=== PATIENT | female | born 1955 | race African-American/Black ===

== ENCOUNTER 2018-01-30 01:19 | Emergency (ER) | payer BC, OTHER ==
--- NOTE | 2018-01-30 01:59 | ER Document Report ---
ED General - General Chief Complaint: Foot Pain Stated Complaint: WC/FOOT INJURY Time Seen by Provider: 01/30/18 01:45 Notes: Patient is a pleasant 62-year-old female presents with complaint of pain over the left foot. Patient says that a few days ago a lock dropped onto her left foot. She says she has been walking her left foot and even went to work but says it continues to be painful and little bit swollen. Pain is mostly in the distal foot. She is not diabetic. She has no other complaints at this time. She denies any other injuries. - Related Data Allergies/Adverse Reactions: No Known Allergies Allergy (Unverified 01/30/18 01:25) Past Medical History - Social History Smoking Status: Never Smoker Frequency of alcohol use: None Drug Abuse: None Family History: Reviewed & Not Pertinent Review of Systems - Review of Systems Notes: My Normal Review Basic REVIEW OF SYSTEMS: CONSTITUTIONAL : Denies fever, chills, or sweats. Denies recent illness. MUSCULOSKELETAL: Foot pain SKIN: Denies rash or skin lesions. NEUROLOGICAL: Denies sensory or motor loss. ALL OTHER SYSTEMS REVIEWED AND NEGATIVE. Physical Exam - Notes Notes: General Appearance: Well nourished, alert, cooperative, no acute distress, no obvious discomfort. Vitals: reviewed, See vital signs table. Musculoskeletal: Pain over dorsum of left foot that is mostly the distal portion. No deformity. Mild swelling over the dorsum of the foot. No pain to palpation of the ankle. Good capillary refill in all toes. Extremities: good pulses in all extremities, and over left foot. Skin: warm, dry, appropriate color, no rash Neuro: speech clear, oriented x 3, normal affect, responds appropriately to questions. Distal sensation intact. Course - Re-evaluation Re-evalutation: 01/30/18 03:25 Patient was given Tylenol Motrin for pain. I did order dose to be given here before she leaves. At time of discharge she does have some hypertension but she also is having significant pain in her foot so I think is most likely related to that. She is not having concerning symptoms so she with hypertension and therefore I do not think is appropriate to treat on a antihypertensive at this time as her blood pressure may be normal when she is not having pain. She is to follow-up with her doctor on Thursday for reevaluation. X-ray shows no evidence of fracture to her foot. She is scared that she would not be able to use crutches well and therefore prescribe her a walker to use to help stay nonweightbearing of her foot which will most likely help her have less pain and help her heal faster. Dictation of this chart was performed using voice recognition software; therefore, there may be some unintended grammatical errors. Discharge - Discharge Clinical Impression: Foot contusion Qualifiers: Encounter type: initial encounter Laterality: left Qualified Code(s): S90.32XA - Contusion of left foot, initial encounter High blood pressure Qualifiers: Hypertension type: unspecified Qualified Code(s): I10 - Essential (primary) hypertension Condition: Good Disposition: HOME, SELF-CARE Additional Instructions: Please return to the ER immediately if you develop uncontrolled pain, worsening swelling, or feel unwell. Please follow up with your doctor on Thursday for reevaluation. Please try to stay nonweight bearing off your left foot until it is no longer painful to bear weight. Take Tylenol and Motrin for pain. Prescriptions: Walker [Folding Walker] 1 each ASDIR PRN #1 each PRN Reason:
--- NOTE | 2018-01-30 02:55 | RADIOLOGY REPORT (SQ) ---
EXAM DESCRIPTION: 3 views of the left foot CLINICAL HISTORY: trauma COMPARISON: None. FINDINGS: 3 views of the left foot. No acute fracture or dislocation. Normal osseous mineralization. 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 The tarsals and metatarsals appear appropriately aligned. Degenerative change of the intertarsal joints. IMPRESSION: 1. No acute fracture or dislocation
[2018-01-30] MEDS ORDERED: ACETAMINOPHEN 325 MG TABLET PO ONE (02:56)
[2018-01-30] MEDS ORDERED: IBUPROFEN 600 MG TABLET PO ONE (02:56)
[2018-01-30 03:25] VITALS: BP 191/82
== END 2018-01-30 03:25 | disposition home or self-care (01) ==
LOC: ER 01:19
DX: S90.32XA Contusion of left foot, initial encounter (principal); M79.672 Pain in left foot; W20.8XXA Other cause of strike by thrown, projected or falling object, initial encounter; Y99.0 Civilian activity done for income or pay; I10 Essential (primary) hypertension
CPT/HCPCS: 99283

== ENCOUNTER 2019-09-05 20:37 | Inpatient (IN) | payer BC ==
[2019-09-05] MEDS ORDERED: NORMAL SALINE 1000 ML 1,000 ML IV PRN (21:43)
[2019-09-05] MEDS ORDERED: MECLIZINE HCL 25 MG TABLET PO ONE (21:46)
[2019-09-05] MEDS ORDERED: ONDANSETRON HCL INJ/PF 4 MG/2 ML SDV IV ONE (21:46)
--- NOTE | 2019-09-05 21:47 | ER Document Report ---
ED Medical Screen (RME) - General Chief Complaint: Dizziness Stated Complaint: VOMITING/FEEL FAINT Time Seen by Provider: 09/05/19 21:36 TRAVEL OUTSIDE OF THE [place] IN LAST 30 DAYS: No - HPI Notes: 09/05/19 21:45 Patient is a 63-year-old female no significant past medical history who presents complaining of dizziness that is been present for the past 2 to 3 days. Patient states that she did have some nausea vomiting near the new year, but that has since improved aside from intermittent nausea. She has never had this dizziness before. She is able to eat and drink today, but does have decreased p.o. intake. She is urinating normally and having normal bowel movements. Denies drug allergies. Denies any headache, fever, neck pain, changes in vision/speech/mentation/hearing, URI, sore throat, chest pain, palpitations, syncope, cough, shortness of breath, wheeze, dyspnea, abdominal pain, diarrhea, urinary retention, dysuria, hematuria, loss of control of bowel or bladder, numbness/tingling, saddle anesthesia, muscle paralysis/weakness, or rash. I have treated and performed a rapid initial assessment of this patient. A comprehensive ED assessment and evaluation of the patient, analysis of test results and completion of medical decision making process will be conducted by additional ED providers. PHYSICAL EXAMINATION: GENERAL: Well-appearing, well-nourished and in no acute distress. A&Ox4. Answers questions appropriately. Neuro: NIH 0, GCS 15, cranial nerves grossly intact. - Related Data Allergies/Adverse Reactions: No Known Allergies Allergy (Unverified 09/05/19 21:36) Past Medical History Renal/ Medical History: Denies: Hx Peritoneal Dialysis Physical Exam - Vital signs Vitals: Temp Pulse Resp BP Pulse Ox 97.9 F 59 L 18 166/75 H 100 09/05/19 21:10 09/05/19 21:10 09/05/19 21:10 09/05/19 21:10 09/05/19 21:10 Course - Vital Signs Vital signs: Temp Pulse Resp BP Pulse Ox 97.9 F 59 L 18 166/75 H 100 09/05/19 21:10 09/05/19 21:10 09/05/19 21:10 09/05/19 21:10 09/05/19 21:10
--- NOTE | 2019-09-05 22:49 | RADIOLOGY REPORT (SQ) ---
EXAM DESCRIPTION: CT HEAD WITHOUT IV CONTRAST COMPLETED DATE/TME: 09/05/2019 21:42 CLINICAL HISTORY: 63 years, Female, dizziness COMPARISON: None. TECHNIQUE: 180 Images stored on PACS. All CT scanners at this facility use dose modulation, iterative reconstruction, and/or weight based dosing when appropriate to reduce radiation dose to as low as reasonably achievable (ALARA). [facility]: Dose Right [facility]: CareDose [facility]: Dose Right [facility]: Teradose 4D [facility]: THE [employer] App LIMITATIONS: None. FINDINGS: The globes are intact. The paranasal sinuses and mastoid air cells are unremarkable. No displaced or depressed skull fracture. No intra or extra-axial hemorrhage. CT is limited for evaluation of acute infarct. No CT evidence for large or territorial acute infarct. Wedge-shaped area of diminished attenuation isodense to CSF in the right cerebellum likely reflects an area of old infarct. No mass. No midline shift. IMPRESSION: Probable old area of infarct in the right cerebellum. Correlation with any prior/outside exams is recommended. If symptoms persist consider follow-up with MRI. Remainder unremarkable TECHNICAL DOCUMENTATION: Quality ID # 436: Final reports with documentation of one or more dose reduction techniques (e.g., Automated exposure control, adjustment of the mA and/or kV according to patient size, use of iterative reconstruction technique) copyright 2011 [employer]- All Rights Reserved
--- NOTE | 2019-09-05 23:56 | ER Document Report ---
ED General - General Chief Complaint: Dizziness Stated Complaint: VOMITING/FEEL FAINT Time Seen by Provider: 09/05/19 21:36 Notes: Patient is a 63-year-old female that comes to the emergency department for chief complaint of dizziness, sense of imbalance, and vomiting. She states that on New Year's Day she suddenly started feeling bad, having dizziness, vomited multiple times. She states this did improve later that day but she still keeps having episodes where she feels like she is spinning around in circles and episodes where she loses her balance. She denies fall injury. She denies headache. She denies fever/chills. She denies abdominal pain or chest pain. Patient states she does not have any diagnosed medical history, she does not have a primary care provider. She denies smoking, alcohol, recreational drugs. She also denies any surgeries. Her is at bedside. TRAVEL OUTSIDE OF THE [place] IN LAST 30 DAYS: No - Related Data Allergies/Adverse Reactions: No Known Allergies Allergy (Unverified 09/05/19 21:36) Past Medical History - General Information source: Patient - Social History Smoking Status: Never Smoker Frequency of alcohol use: None Drug Abuse: None Lives with: Family Family History: Reviewed & Not Pertinent Patient has suicidal ideation: No Patient has homicidal ideation: No Renal/ Medical History: Denies: Hx Peritoneal Dialysis Surgical Hx: Negative Review of Systems - Review of Systems Constitutional: No symptoms reported EENT: No symptoms reported Cardiovascular: No symptoms reported Respiratory: No symptoms reported Gastrointestinal: See HPI Genitourinary: No symptoms reported Female Genitourinary: No symptoms reported Musculoskeletal: No symptoms reported Skin: No symptoms reported Hematologic/Lymphatic: No symptoms reported Neurological/Psychological: See HPI Physical Exam - Vital signs Vitals: Temp Pulse Resp BP Pulse Ox 97.9 F 59 L 18 166/75 H 100 09/05/19 21:10 09/05/19 21:10 09/05/19 21:10 09/05/19 21:10 09/05/19 21:10 - Notes Notes: GENERAL: Alert, interacts well. No acute distress. HEAD: Normocephalic, atraumatic. EYES: Pupils equal, round, and reactive to light. Extraocular movements intact. Mild nystagmus in both directions horizontally. ENT: Oral mucosa moist, tongue midline. Oropharynx unremarkable. Airway patent. Nares patent, no nasal septal hematoma, TM's intact. NECK: Full range of motion. Supple. Trachea midline. LUNGS: Clear to auscultation bilaterally, no wheezes, rales, or rhonchi. No respiratory distress. HEART: Regular rate and rhythm. No murmur ABDOMEN: Soft, non-tender. Non-distended. Bowel sounds present in all 4 quad rants. GENITOURINARY: Deferred EXTREMITIES: Moves all 4 extremities spontaneously. No edema, normal radial and dorsalis pedis pulses bilaterally. No cyanosis. BACK: no cervical, thoracic, lumbar midline tenderness. No saddle anesthesia, normal distal neurovascular exam. Moves all extremities in full range of motion. NEUROLOGICAL: Alert and oriented x3. Normal speech. Mild ataxia. Cranial nerves II through XII grossly intact. PSYCH: Normal affect, normal mood. SKIN: Warm, dry, normal turgor. No rashes or lesions noted. Course - Re-evaluation Re-evalutation: I did observe patient ambulating and she is ataxic but she does not fall to one side and she was able to ambulate successfully even though she reaches out frequently to catch herself. She still reports dizziness, she does have some nystagmus both sides laterally, however she is alert and well-appearing, has a normal neurologic exam otherwise. She is somewhat hypertensive, vital signs unremarkable otherwise. CT of the head reviewed, shows old right-sided cerebellar infarct. I suspect this happened about 6 days ago based on patient's reported symptoms. CBC u nremarkable, chemistry unremarkable, EKG without ST segment changes or T wave inversions in consecutive leads, does not show atrial fibrillation, sinus rhythm. Chest x-ray unremarkable. Discussed with patient. Patient was very surprised and initially upset about the report. I recommended admission for stroke work-up, hypertension management, re-stratification. Discussed with Dr. Barton. Discussed with Dr. Cervantes, patient accepted to the [facility] full admission. - Vital Signs Vital signs: Temp Pulse Resp BP Pulse Ox 97.7 F 59 L 16 174/64 H 98 09/06/19 05:01 09/06/19 04:12 09/06/19 07:03 09/06/19 07:03 09/06/19 07:03 - Laboratory Result Diagrams: 09/06/19 00:20 09/06/19 00:20 Laboratory results interpreted by me: 09/06/19 00:20 RDW 14.3 H Discharge - Discharge Clinical Impression: Cerebellar infarction, Uncontrolled hypertension, Dizziness Condition: Stable Disposition: ADMITTED INPATIENT Admitting Provider: Billy (Hospitalist) Unit Admitted: [facility]
--- NOTE | 2019-09-06 00:33 | RADIOLOGY REPORT (SQ) ---
CLINICAL HISTORY: CVA workup COMPARISON: None. 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 Lungs are clear without consolidation, atelectasis, mass or edema. There is no pleural effusion. There is no pneumothorax. There are no acute osseous findings. IMPRESSION: Clear lungs.
[2019-09-06 00:36] LABS: ABSOLUTE BASOPHILS # (AUTO) 0.1 10^3/uL (0.0-0.2); ABSOLUTE EOSINOPHILS # (AUTO) 0.2 10^3/uL (0.0-0.6); ABSOLUTE LYMPHOCYTES (AUTO) 2.9 10^3/uL (0.5-4.7); ABSOLUTE MONOCYTES (AUTO) 0.9 10^3/uL (0.1-1.4); ABSOLUTE NEUT (AUTO) 6.4 10^3/uL (1.7-8.2); BASOPHILS % (AUTO) 0.8 % (0-2); EOSINOPHILS % (AUTO) 1.8 % (0-6); HEMATOCRIT 42.2 % (36.0-47.0); HEMOGLOBIN 13.9 g/dL (12.0-15.5); LYMPHOCYTES % (AUTO) 28.2 % (13-45); MEAN CORPUSCULAR HEMOGLOBIN 27.3 pg (27.0-33.4); MEAN CORPUSCULAR HGB CONC 32.9 g/dL (32.0-36.0); MEAN CORPUSCULAR VOLUME 83 fl (80-97); MONOCYTES % (AUTO) 8.2 % (3-13); RED BLOOD COUNT 5.08 10^6/uL (3.72-5.28); RED CELL DISTRIBUTION WIDTH 14.3 % (11.5-14.0); TOTAL CELLS COUNTED % (AUTO) 100 %; WHITE BLOOD COUNT 10.4 10^3/uL (4.0-10.5)
[2019-09-06 00:55] LABS: ALBUMIN 4.3 g/dL (3.5-5.0); ALKALINE PHOSPHATASE 111 U/L (38-126); ANION GAP 9 (5-19); ASPARTATE AMINO TRANSFERASE 23 U/L (14-36); BILIRUBIN,DIRECT 0.3 mg/dL (0.0-0.4); BILIRUBIN,TOTAL 0.5 mg/dL (0.2-1.3); BLOOD UREA NITROGEN 11 mg/dL (7-20); CALCIUM 9.3 mg/dL (8.4-10.2); CARBON DIOXIDE 30 mmol/L (22-30); CHLORIDE 100 mmol/L (98-107); GLUCOSE 91 mg/dL (75-110); POTASSIUM 3.9 mmol/L (3.6-5.0); TOTAL PROTEIN 8.2 g/dL (6.3-8.2)
[2019-09-06 01:04] LABS: PLATELET COUNT 318 10^3/uL (150-450)
[2019-09-06] MEDS ORDERED: MAGNESIUM HYDROXIDE SUSP 30 ML UDCUP PO PRN (04:45)
[2019-09-06] MEDS ORDERED: ACETAMINOPHEN 325 MG TABLET PO PRN (04:45)
[2019-09-06] MEDS ORDERED: DOCUSATE SODIUM 100 MG CAPSULE PO PRN (04:45)
[2019-09-06] MEDS ORDERED: HYDRALAZINE HCL INJ/PF 20 MG/1 ML SDV IV PRN (04:53)
--- NOTE | 2019-09-06 04:53 | PDOC H&P ---
History of Present Illness Admission Date/PCP: 09/06/19 01:51 Patient complains of: Vertigo History of Present Illness: EUNICE RODGERS is a 63 year old female without significant past medical history but without recent medical evaluation. She presents with 5 days of dizziness feeling as if she is going to fall to one side. Prompting her to seek evaluation in the emergency room where she is found to have uncontrolled hypertension and a subacute cerebellar CVA by CT. She denies confusion, focal weakness, difficulty with speech. She denies palpitations, previous episode she is otherwise felt well. Past Medical History Medical History: None Past Surgical History Past Surgical History: Reports: None Social History Information Source: Patient Lives with: Spouse/Significant other Smoking Status: Never Smoker Frequency of Alcohol Use: None Drugs: None - Advance Directive Resuscitation Status: Full Code Family History Family History: CAD, Hypertension Parental Family History Reviewed: Yes Children Family History Reviewed: Yes Sibling(s) Family History Reviewed.: Yes Medication/Allergy Home Medications: Walker [Folding Walker] 1 each [facility] ASDIR PRN #1 each 01/30/18 Allergies/Adverse Reactions: No Known Allergies Allergy (Unverified 09/05/19 21:36) Review of Systems Constitutional: ABSENT: chills, fever(s), headache(s), weight gain, weight loss Eyes: ABSENT: visual disturbances Ears: ABSENT: hearing changes Cardiovascular: ABSENT: chest pain, dyspnea on exertion, edema, orthropnea, palpitations Respiratory: ABSENT: cough, hemoptysis Gastrointestinal: ABSENT: abdominal pain, constipation, diarrhea, hematemesis, hematochezia, nausea, vomiting Genitourinary: ABSENT: dysuria, hematuria Musculoskeletal: ABSENT: joint swelling Integumentary: ABSENT: rash, wounds Neurological: ABSENT: abnormal gait, abnormal speech, confusion, dizziness, focal weakness, syncope Psychiatric: ABSENT: anxiety, depression, homidical ideation, suicidal ideation Endocrine: ABSENT: cold intolerance, heat intolerance, polydipsia, polyuria Hematologic/Lymphatic: ABSENT: easy bleeding, easy bruising Physical Exam Vital Signs: Temp Pulse Resp BP Pulse Ox 98.1 F 59 L 17 179/54 H 96 09/06/19 01:43 09/06/19 04:12 09/06/19 04:12 09/06/19 04:12 09/06/19 04:12 Intake & Output 09/04/19 09/05/19 09/06/19 11:59 11:59 11:59 Weight 105.4 kg General appearance: PRESENT: no acute distress, well-developed, well-nourished Head exam: PRESENT: atraumatic, normocephalic Eye exam: PRESENT: conjunctiva pink, EOMI, nystagmus, PERRLA. ABSENT: scleral icterus Ear exam: PRESENT: normal external ear exam Mouth exam: PRESENT: moist, tongue midline Neck exam: ABSENT: carotid bruit, JVD, lymphadenopathy, thyromegaly Respiratory exam: PRESENT: clear to auscultation karley. ABSENT: rales, rhonchi, wheezes Cardiovascular exam: PRESENT: RRR. ABSENT: diastolic murmur, rubs, systolic murmur Pulses: PRESENT: normal dorsalis pedis pul Vascular exam: PRESENT: normal capillary refill GI/Abdominal exam: PRESENT: normal bowel sounds, soft. ABSENT: distended, guarding, mass, organolmegaly, rebound, tenderness Rectal exam: PRESENT: deferred Extremities exam: PRESENT: full ROM. ABSENT: calf tenderness, clubbing, pedal edema Neurological exam: PRESENT: alert, awake, oriented to person, oriented to place, oriented to time, oriented to situation, CN II-XII grossly intact. ABSENT: motor sensory deficit Psychiatric exam: PRESENT: appropriate affect, normal mood. ABSENT: homicidal ideation, suicidal ideation Skin exam: PRESENT: dry, intact, warm. ABSENT: cyanosis, rash Results Laboratory Results: 09/06/19 00:20 09/06/19 00:20 09/06/19 09/06/19 00:20 00:20 WBC 10.4 RBC 5.08 Hgb 13.9 Hct 42.2 MCV 83 MCH 27.3 MCHC 32.9 RDW 14.3 H Plt Count 318 Seg Neutrophils % 61.0 Sodium 139.0 Potassium 3.9 Chloride 100 Carbon Dioxide 30 Anion Gap 9 BUN 11 Creatinine 0.64 Est GFR ( Amer) > 60 Glucose 91 Calcium 9.3 Total Bilirubin 0.5 AST 23 Alkaline Phosphatase 111 Total Protein 8.2 Albumin 4.3 09/06/19 00:20 Troponin I 0.015 Impressions: Head CT 09/05/19 21:42 IMPRESSION: Probable old area of infarct in the right cerebellum. Correlation with any prior/outside exams is recommended. If symptoms persist consider follow-up with MRI. Remainder unremarkable TECHNICAL DOCUMENTATION: Quality ID # 436: Final reports with documentation of one or more dose reduction techniques (e.g., Automated exposure control, adjustment of the mA and/or kV according to patient size, use of iterative reconstruction technique) copyright 2011 [employer]- All Rights Reserved Chest X-Ray 09/05/19 23:46 IMPRESSION: Clear lungs. Assessment and Plan - Diagnosis (1) Cerebellar infarction Is this a current diagnosis for this admission?: Yes Plan: CVA care set, follow-up MRI, carotid Doppler, lipid profile, A1c and physical and Occupational Therapy (2) Dizziness Is this a current diagnosis for this admission?: Yes Plan: Secondary #1 (3) Uncontrolled hypertension Is this a current diagnosis for this admission?: Yes Plan: Initiate JOANNE inhibitor - Time Time Spent with patient: 25-34 minutes - Inpatient Certification Medical Necessity: Need Close Monitoring Due to Risk of Patient Decompensation
[2019-09-06] MEDS ORDERED: ATORVASTATIN CALCIUM 80 MG TABLET PO ONE (05:00)
[2019-09-06] MEDS ORDERED: ENALAPRIL MALEATE 10 MG TABLET PO ONE (05:00)
[2019-09-06] MEDS ORDERED: HEPARIN SOD (PORCINE) 5,000 UNIT/ML 1 ML VIAL SUBCUT SCH (06:00)
[2019-09-06 06:25] LABS: CHOLESTEROL 205.34 mg/dL (0-200); TRIGLYCERIDES 81 mg/dL (<150)
[2019-09-06 06:36] LABS: DIRECT LDL 124 mg/dL (<100)
--- NOTE | 2019-09-06 11:00 | RADIOLOGY REPORT (SQ) ---
EXAM DESCRIPTION: MRI HEAD WITHOUT COMPLETED DATE/TIME: 09/06/2019 9:57 am REASON FOR STUDY: vertigo COMPARISON: CT dated 09/05/2019. TECHNIQUE: Multiplanar imaging includes non-contrasted T1, T2, FLAIR, and diffusion with ADC map seq uences. Images stored on PACS. LIMITATIONS: None. FINDINGS: ANATOMY: No anomalies. Normal vascular flow voids. Pituitary fossa normal. CSF SPACES: Normal in size and contour. No hemorrhage. CEREBRUM: Sulci and gyri normal in size and contour. Normal white matter signal on FLAIR imaging. No evidence of hemorrhage, mass, or extraaxial fluid collection. POSTERIOR FOSSA: Focal area of encephalomalacia in the inferior right cerebellar hemisphere. No hemor rhage. No edema, masses or mass effect. Internal auditory canals, cerebello-pontine angles, mastoids normal. DIFFUSION IMAGING: Negative for acute or sub-acute infarction. ORBITS: No masses. Globes normal. PARANASAL SINUSES: No fluid levels. Mucosa normal. OTHER: No other significant finding. IMPRESSION: FOCAL AREA OF ENCEPHALOMALACIA IN THE INFERIOR RIGHT CEREBELLAR HEMISPHERE. THIS MAY BE DUE TO AN OLD INFARCT OR COULD BE SEQUELAE OF OLD TRAUMA. NO OTHER SIGNIFICANT OR ACUTE FINDINGS. EVIDENCE OF ACUTE STROKE: NO. TECHNICAL DOCUMENTATION: JOB ID: [id number] [employer]- All Rights Reserved Reading location - IP/workstation name: [email or web address]
[2019-09-06] MEDS: ASPIRIN 325 MG TABLET, ENT COATED PO SCH (11:20)
--- NOTE | 2019-09-06 11:46 | PDOC PROGRESS REPORT ---
Subjective Progress Note for:: 09/06/19 Subjective:: Patient reports no acute dizziness at this time. She occasionally gets a sensation on the right side of her neck. She in fact moves her hand over the trapezius muscle. She states that rubbing it makes it feel better. 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 She states that she has not had any problems with coordination while sewing. She denies headache, nausea and vomiting at this time. Reason For Visit: CVA VERTIGO Physical Exam Vital Signs: Temp Pulse Resp BP Pulse Ox 97.7 F 59 L 19 181/67 H 97 09/06/19 05:01 09/06/19 04:12 09/06/19 11:31 09/06/19 11:31 09/06/19 09:01 Intake & Output 09/05/19 09/06/19 09/07/19 06:59 06:59 06:59 Weight 105.4 kg General appearance: PRESENT: no acute distress, cooperative, obese, well- developed Head exam: PRESENT: atraumatic, normocephalic Eye exam: PRESENT: conjunctiva pink, EOMI, nystagmus - Faint nystagmus to the left. ABSENT: scleral icterus Ear exam: PRESENT: normal external ear exam. ABSENT: bleeding, drainage Mouth exam: PRESENT: moist, tongue midline Neck exam: PRESENT: full ROM. ABSENT: carotid bruit, lymphadenopathy Respiratory exam: PRESENT: clear to auscultation karley, symmetrical, unlabored. ABSENT: accessory muscle use, rales, rhonchi, tachypnea, wheezes Cardiovascular exam: PRESENT: RRR, +S1, +S2 GI/Abdominal exam: PRESENT: normal bowel sounds, soft. ABSENT: distended, guarding, tenderness Rectal exam: PRESENT: deferred Extremities exam: ABSENT: pedal edema Musculoskeletal exam: PRESENT: normal inspection, other - Normal plantar and dorsiflexion of the feet. Normal grasp bilaterally. ABSENT: deformity Neurological exam: PRESENT: alert, awake, oriented to person, oriented to place, oriented to time, oriented to situation, CN II-XII grossly intact, other - Did not attempt to ambulate the patient at this time. ABSENT: motor sensory deficit - No gross motor or sensory deficits appreciated Psychiatric exam: ABSENT: agitated, anxious Skin exam: PRESENT: dry, normal color, warm. ABSENT: rash Results Laboratory Results: 09/06/19 00:20 09/06/19 00:20 09/06/19 09/06/19 09/06/19 00:20 00:20 05:56 WBC 10.4 RBC 5.08 Hgb 13.9 Hct 42.2 MCV 83 MCH 27.3 MCHC 32.9 RDW 14.3 H Plt Count 318 Seg Neutrophils % 61.0 Sodium 139.0 Potassium 3.9 Chloride 100 Carbon Dioxide 30 Anion Gap 9 BUN 11 Creatinine 0.64 Est GFR ( Amer) > 60 Glucose 91 Calcium 9.3 Total Bilirubin 0.5 AST 23 Alkaline Phosphatase 111 Total Protein 8.2 Albumin 4.3 Triglycerides 81 Cholesterol 205.34 H LDL Cholesterol Direct 124 H VLDL Cholesterol 16.0 HDL Cholesterol 55 09/06/19 00:20 Troponin I 0.015 Impressions: Head CT 09/05/19 21:42 IMPRESSION: Probable old area of infarct in the right cerebellum. Correlation with any prior/outside exams is recommended. If symptoms persist consider follow-up with MRI. Remainder unremarkable TECHNICAL DOCUMENTATION: Quality ID # 436: Final reports with documentation of one or more dose reduction techniques (e.g., Automated exposure control, adjustment of the mA and/or kV according to patient size, use of iterative reconstruction technique) copyright 2011 [employer]- All Rights Reserved Chest X-Ray 09/05/19 23:46 IMPRESSION: Clear lungs. Head MRI 09/06/19 00:00 IMPRESSION: FOCAL AREA OF ENCEPHALOMALACIA IN THE INFERIOR RIGHT CEREBELLAR HEMISPHERE. THIS MAY BE DUE TO AN OLD INFARCT OR COULD BE SEQUELAE OF OLD TRAUMA. NO OTHER SIGNIFICANT OR ACUTE FINDINGS. EVIDENCE OF ACUTE STROKE: NO. Assessment and Plan - Diagnosis (1) Cerebellar infarction Is this a current diagnosis for this admission?: Yes Plan: The patient had an area of encephalomalacia in the cerebellum. It has been a week since her stroke. We will institute blood pressure control measures as well as aspirin and statin therapy. Carotid ultrasound pending (2) Dizziness Is this a current diagnosis for this admission?: Yes Plan: The patient describes an almost vertigo-like picture. She did had very slight left nystagmus. Does not feel dizzy now. Physical therapy will evaluate. (3) Hypertensive emergency Is this a current diagnosis for this admission?: Yes Plan: Patient blood pressure was greater than 190 systolic on several occasions initially. Medications instituted. Blood pressure improving. Explained to the patient that we do not want to drop her blood pressure too quickly. - Plan Summary Summary: [place] antihypertensives as well as antiplatelet and statin therapy. Awaiting carotid ultrasounds and physical therapy evaluation. - Time Time Spent with patient: 15-24 minutes Medications reviewed and adjusted accordingly: Yes Anticipated discharge: Home with Homehealth
--- NOTE | 2019-09-06 14:40 | RADIOLOGY REPORT (SQ) ---
EXAM DESCRIPTION: CAROTID DOPPLER COMPLETED DATE/TIME: 09/06/2019 10:19 am REASON FOR STUDY: cva COMPARISON: None. TECHNIQUE: Grayscale ultrasound, Doppler velocity and spectra, and color Doppler images acquired of the extra-cranial carotid and vertebral arteries. Images stored on PACS. LIMITATIONS: None. FINDINGS: RIGHT CAROTID CCA Velocities: Within normal limits. ICA Velocities Peak systolic 117 m/s. End diastolic 23 m/s. Proximal ICA/CCA peak systolic ratio 2.0. There is mild intimal thickening at the carotid bulb and proximal internal carotid artery. Normal sp ectral waveforms. LEFT CAROTID CCA Velocities: Within normal limits. ICA Velocities Peak systolic 117 m/s. End diastolic 29 m/s. Proximal ICA/CCA peak systolic ratio 1.7. Mild intimal thickening at the carotid bulb and proximal internal carotid artery. Normal spectral wa veforms. VERTEBRAL ARTERIES: Antegrade flow. Normal waveforms. SUBCLAVIAN ARTERIES: No finding. OTHER: No other significant finding. IMPRESSION: Less than 50% stenosis bilateral internal carotid arteries. COMMENT: Quality ID #[id number]: Velocity criteria are extrapolated from the diameter data as defined by t he Society of Radiologists in Ultrasound Consensus Conference. Radiology 2003: 229; 340-346. TECHNICAL DOCUMENTATION: JOB ID: [id number] [employer]- All Rights Reserved Reading location - IP/workstation name: [email or web address]
[2019-09-06] MEDS: HEPARIN SOD (PORCINE) 5,000 UNIT/ML 1 ML VIAL SUBCUT SCH ×2 (16:06→22:34)
[2019-09-06] MEDS ORDERED: ATORVASTATIN CALCIUM 80 MG TABLET PO SCH (22:00)
--- NOTE | 2019-09-06 22:26 | EKG REPORT ---
SEVERITY:- ABNORMAL ECG - SINUS RHYTHM PROBABLE LEFT ATRIAL ABNORMALITY LEFT VENTRICULAR HYPERTROPHY : Confirmed by: Roxanne Palumbo 06-Sep-2019 22:26:13
[2019-09-06] MEDS: ENALAPRIL MALEATE 10 MG TABLET PO SCH (22:36)
[2019-09-07] MEDS ORDERED: KETOROLAC TROMETHAMINE INJ/PF 30 MG/1 ML SDV IV ONE (02:30)
[2019-09-07] MEDS ORDERED: KETOROLAC TROMETHAMINE INJ/PF 30 MG/1 ML SDV IM ONE (02:30)
[2019-09-07] MEDS: HEPARIN SOD (PORCINE) 5,000 UNIT/ML 1 ML VIAL SUBCUT SCH ×2 (05:36→14:07)
[2019-09-07] MEDS: ENALAPRIL MALEATE 10 MG TABLET PO SCH (10:02)
[2019-09-07] MEDS: ASPIRIN 325 MG TABLET, ENT COATED PO SCH (10:02)
--- NOTE | 2019-09-07 11:18 | EKG REPORT ---
SEVERITY:- ABNORMAL ECG - SINUS RHYTHM LEFT ATRIAL ABNORMALITY LEFT VENTRICULAR HYPERTROPHY : Confirmed by: Roxanne Palumbo 07-Sep-2019 11:18:30
--- NOTE | 2019-09-07 14:32 | PDOC DISCHARGE SUMMARY ---
Impression - Admit/DC Date/PCP Admission Date/Primary Care Provider: 09/06/19 01:51 Discharge Date: 09/07/19 - Discharge Diagnosis (1) Cerebellar infarction Is this a current diagnosis for this admission?: Yes (2) Dizziness Is this a current diagnosis for this admission?: Yes (3) Hypertensive emergency Is this a current diagnosis for this admission?: Yes - Assessment Summary: 09/06/2019-institute antihypertensives as well as antiplatelet and statin therapy. Awaiting carotid ultrasounds and physical therapy evaluation. 09/07/2019-better blood pressure control. Walked with physical therapy and no dizziness. Tolerating statin therapy. Will discharge to home with home health and physical therapy. - Additional Information Resuscitation Status: Full Code Discharge Diet: Cardiac Discharge Activity: Activity As Tolerated Referrals: MARIO RODRIGUEZ MD [ACTIVE STAFF] - 09/19/19 2:30 pm (Please arrive 15 minutes early to fillout paper work. You will see Dr. Shell) Prescriptions: Aspirin [Adult Low Dose Aspirin EC] 81 mg PO DAILY 15 Days #15 tablet. Atorvastatin Calcium [Lipitor 40 mg Tablet] 40 mg PO QHS 15 Days #15 tablet Enalapril Maleate [Vasotec 10 mg Tablet] 10 mg PO Q12 15 Days #30 tablet Home Medications: Aspirin [Adult Low Dose Aspirin EC] 81 mg PO DAILY 15 Days #15 tablet. 09/07/19 Atorvastatin Calcium [Lipitor 40 mg Tablet] 40 mg PO QHS 15 Days #15 tablet 09/07/19 Enalapril Maleate [Vasotec 10 mg Tablet] 10 mg PO Q12 15 Days #30 tablet 09/07/19 History of Present Illiness History of Present Illness: EUNICE RODGERS is a 63 year old female who does not like taking medications. On she felt dizzy. She felt weak. She did not feel that she needed to go to the emergency department. Her weakness and neurologic deficits waxed and waned and find the with family encouragement she presented to the emergency department. She was found to have a cerebellar stroke. Because it was 7 days from the onset she was not a candidate for any thrombolytic therapy. She was referred to the hospital service for admission. Hospital Course Hospital Course: Unremarkable hospital course. With improved blood pressures her symptoms improved. She was able to ambulate with physical therapy. She had some nonspecific complaints today including a cough which I believe is from reflux, some numbness under the toes on her left foot which is very nonspecific and some skin discomfort on the right side to the area under the right breast without evidence of shingles. Carotid ultrasounds revealed less than 50% stenosis bilaterally. She is tolerating statin, aspirin and antihypertensive therapy. Physical Exam Vital Signs: Temp Pulse Resp BP Pulse Ox 98.2 F 60 16 161/58 H 95 09/07/19 11:30 09/07/19 12:00 09/07/19 12:00 09/07/19 12:00 09/07/19 12:00 Intake & Output 09/06/19 09/07/19 09/08/19 06:59 06:59 06:59 Intake Total 475 525 Output Total 1 Balance 474 525 Weight 105.4 kg 104.2 kg General appearance: PRESENT: no acute distress, cooperative, well-developed Head exam: PRESENT: atraumatic, normocephalic Eye exam: PRESENT: conjunctiva pink, EOMI. ABSENT: scleral icterus Ear exam: PRESENT: normal external ear exam. ABSENT: bleeding, drainage Mouth exam: PRESENT: moist, tongue midline Respiratory exam: PRESENT: clear to auscultation karley, symmetrical, unlabored. ABSENT: rales, rhonchi, tachypnea, wheezes Cardiovascular exam: PRESENT: RRR, +S1, +S2 GI/Abdominal exam: PRESENT: normal bowel sounds, soft. ABSENT: distended, guarding, tenderness Rectal exam: PRESENT: deferred Gentrourinary exam: ABSENT: indwelling catheter Extremities exam: ABSENT: joint swelling, pedal edema Musculoskeletal exam: PRESENT: ambulatory, normal inspection. ABSENT: deformity Neurological exam: PRESENT: alert, awake, oriented to person, oriented to place, oriented to time, oriented to situation, CN II-XII grossly intact. ABSENT: motor sensory deficit - Complained of numbness under her left toes. Gross sensation was intact as well as proprioception. Psychiatric exam: PRESENT: anxious - Seems slightly anxious regarding discharge. She had multiple questions.. ABSENT: agitated Focused psych exam: ABSENT: delusional, restlessness Skin exam: PRESENT: dry, warm, other - Complained of some discomfort in a dermatomal distribution on the right. No rash noted. Some areas of discomfort but I do not feel it is shingles related. It is somewhat nonspecific.. ABSENT: erythema, rash Results Laboratory Results: WBC 10.4 10^3/uL (4.0-10.5) 09/06/19 00:20 RBC 5.08 10^6/uL (3.72-5.28) 09/06/19 00:20 Hgb 13.9 g/dL (12.0-15.5) 09/06/19 00:20 Hct 42.2 % (36.0-47.0) 09/06/19 00:20 MCV 83 fl (80-97) 09/06/19 00:20 MCH 27.3 pg (27.0-33.4) 09/06/19 00:20 MCHC 32.9 g/dL (32.0-36.0) 09/06/19 00:20 RDW 14.3 % (11.5-14.0) H 09/06/19 00:20 Plt Count 318 10^3/uL (150-450) 09/06/19 00:20 Lymph % (Auto) 28.2 % (13-45) 09/06/19 00:20 [place] % (Auto) 8.2 % (3-13) 09/06/19 00:20 Eos % (Auto) 1.8 % (0-6) 09/06/19 00:20 Baso % (Auto) 0.8 % (0-2) 09/06/19 00:20 Absolute Neuts (auto) 6.4 10^3/uL (1.7-8.2) 09/06/19 00:20 Absolute Lymphs (auto) 2.9 10^3/uL (0.5-4.7) 09/06/19 00:20 Absolute Monos (auto) 0.9 10^3/uL (0.1-1.4) 09/06/19 00:20 Absolute Eos (auto) 0.2 10^3/uL (0.0-0.6) 09/06/19 00:20 Absolute Basos (auto) 0.1 10^3/uL (0.0-0.2) 09/06/19 00:20 Seg Neutrophils % 61.0 % (42-78) 09/06/19 00:20 Sodium 139.0 mmol/L (137-145) 09/06/19 00:20 Potassium 3.9 mmol/L (3.6-5.0) 09/06/19 00:20 Chloride 100 mmol/L (98-107) 09/06/19 00:20 Carbon Dioxide 30 mmol/L (22-30) 09/06/19 00:20 Anion Gap 9 (5-19) 09/06/19 00:20 BUN 11 mg/dL (7-20) 09/06/19 00:20 Creatinine 0.64 mg/dL (0.52-1.25) 09/06/19 00:20 Est GFR ( Amer) > 60 (>60) 09/06/19 00:20 Est GFR (MDRD) Non-Af > 60 (>60) 09/06/19 00:20 Glucose 91 mg/dL (75-110) 09/06/19 00:20 Hemoglobin A1c % 6.3 % (4.7-6.0) H 09/06/19 05:56 Calcium 9.3 mg/dL (8.4-10.2) 09/06/19 00:20 Total Bilirubin 0.5 mg/dL (0.2-1.3) 09/06/19 00:20 Direct Bilirubin 0.3 mg/dL (0.0-0.4) 09/06/19 00:20 Neonat Total Bilirubin Not Reportable 09/06/19 00:20 Neonat Direct Bilirubin Not Reportable 09/06/19 00:20 Neonat Indirect Bili Not Reportable 09/06/19 00:20 AST 23 U/L (14-36) 09/06/19 00:20 ALT 12 U/L (<35) 09/06/19 00:20 Alkaline Phosphatase 111 U/L (38-126) 09/06/19 00:20 Troponin I 0.015 ng/mL 09/06/19 00:20 Total Protein 8.2 g/dL (6.3-8.2) 09/06/19 00:20 Albumin 4.3 g/dL (3.5-5.0) 09/06/19 00:20 Triglycerides 81 mg/dL (<150) 09/06/19 05:56 Cholesterol 205.34 mg/dL (0-200) H 09/06/19 05:56 LDL Cholesterol Direct 124 mg/dL (<100) H 09/06/19 05:56 VLDL Cholesterol 16.0 mg/dL (10-31) 09/06/19 05:56 HDL Cholesterol 55 mg/dL (>40) 09/06/19 05:56 09/06/19 00:20 Troponin I 0.015 Impressions: Head CT 09/05/19 21:42 IMPRESSION: Probable old area of infarct in the right cerebellum. Correlation with any prior/outside exams is recommended. If symptoms persist consider follow-up with MRI. Remainder unremarkable TECHNICAL DOCUMENTATION: Quality ID # [id number]: Final reports with documentation of one or more dose reduction techniques (e.g., Automated exposure control, adjustment of the mA and/or kV according to patient size, use of iterative reconstruction technique) copyright 2011 [employer]- All Rights Reserved Chest X-Ray 09/05/19 23:46 IMPRESSION: Clear lungs. Head MRI 09/06/19 00:00 IMPRESSION: FOCAL AREA OF ENCEPHALOMALACIA IN THE INFERIOR RIGHT CEREBELLAR HEMISPHERE. THIS MAY BE DUE TO AN OLD INFARCT OR COULD BE SEQUELAE OF OLD TRAUMA. NO OTHER SIGNIFICANT OR ACUTE FINDINGS. EVIDENCE OF ACUTE STROKE: NO. Carotid Doppler Study 09/06/19 04:46 IMPRESSION: Less than 50% stenosis bilateral internal carotid arteries. Plan Health Concerns: Uncontrolled hypertension and patient's history of resistance to medications and physicians. Plan of Treatment: Continue antihypertensive medication, statin therapy and aspirin therapy. I stressed the importance of returning to exercise as well as a cardiac diet. I explained that it is imperative to establish with and follow up regularly with a new primary care provider. Goals: Appropriate blood pressure control. Establishing with a primary care provider for ongoing health care. Time Spent: Greater than 30 Minutes Stroke Is this a Stroke Patient?: Yes Stroke Pt being discharged on Anti-thrombolytic therapy?: Yes Stroke Pt being discharged on Anti-coagulation therapy?: No Reason(s) for not prescribing Anti-coagulation therapy:: Not indicated Stroke Pt being discharged on Statins?: Yes Acute Heart Failure - Is this a Heart Failure Patient?: No
[2019-09-07 16:23] VITALS: BP 152/65
== END 2019-09-07 17:51 | disposition home health service (06) | DRG 65 ==
LOC: ER 20:37 → EH 09-06 01:51 → 3W 09-06 23:10
PROVIDERS: ADMIT Internal Medicine; ATTEND Internal Medicine
DX: I63.9 Cerebral infarction, unspecified (principal); I16.1 Hypertensive emergency; I10 Essential (primary) hypertension; E66.9 Obesity, unspecified; G93.89 Other specified disorders of brain; H55.00 Unspecified nystagmus; Z79.899 Other long term (current) drug therapy; Z82.49 Family history of ischemic heart disease and other diseases of the circulatory system
CPT/HCPCS: 36415; 70450; 70551; 71045; 80053; 80061; 83036; 84484; 85025; 93005; 93010; 93880; 99285; J1644; J1885; J3490

== ENCOUNTER → 2019-10-25 | Outpatient (CLI) | payer BC ==
[2019-10-25 11:08] LABS: ABSOLUTE EOSINOPHILS # (AUTO) 0.2 10^3/uL (0.0-0.6); ABSOLUTE MONOCYTES (AUTO) 0.5 10^3/uL (0.1-1.4); ABSOLUTE NEUT (AUTO) 2.4 10^3/uL (1.7-8.2); BASOPHILS % (AUTO) 0.9 % (0-2); EOSINOPHILS % (AUTO) 4.1 % (0-6); HEMATOCRIT 40.3 % (36.0-47.0); HEMOGLOBIN 13.9 g/dL (12.0-15.5); LYMPHOCYTES % (AUTO) 38.3 % (13-45); MEAN CORPUSCULAR HEMOGLOBIN 28.3 pg (27.0-33.4); MEAN CORPUSCULAR HGB CONC 34.5 g/dL (32.0-36.0); MEAN CORPUSCULAR VOLUME 82 fl (80-97); MONOCYTES % (AUTO) 9.6 % (3-13); PLATELET COUNT 294 10^3/uL (150-450); RED BLOOD COUNT 4.92 10^6/uL (3.72-5.28); RED CELL DISTRIBUTION WIDTH 14.6 % (11.5-14.0); SEGMENTED NEUTROPHILS % (AUTO) 47.1 % (42-78); TOTAL CELLS COUNTED % (AUTO) 100 %; WHITE BLOOD COUNT 5.1 10^3/uL (4.0-10.5)
[2019-10-25 11:34] LABS: ALBUMIN 4.2 g/dL (3.5-5.0); ALKALINE PHOSPHATASE 117 U/L (38-126); ANION GAP 7 (5-19); ASPARTATE AMINO TRANSFERASE 21 U/L (14-36); BILIRUBIN,TOTAL 0.5 mg/dL (0.2-1.3); BLOOD UREA NITROGEN 14 mg/dL (7-20); CALCIUM 9.2 mg/dL (8.4-10.2); CARBON DIOXIDE 32 mmol/L (22-30); CHLORIDE 101 mmol/L (98-107); CHOLESTEROL 196.43 mg/dL (0-200); GLUCOSE 95 mg/dL (75-110); POTASSIUM 4.7 mmol/L (3.6-5.0); TOTAL PROTEIN 7.9 g/dL (6.3-8.2); TRIGLYCERIDES 87 mg/dL (<150)
[2019-10-25 11:45] LABS: DIRECT LDL 110 mg/dL (<100)
--- NOTE | 2019-10-25 12:40 | RADIOLOGY REPORT (SQ) ---
EXAM DESCRIPTION: C SP 4 OR 5 VIEWS COMPLETED DATE/TIME: 10/25/2019 10:57 am REASON FOR STUDY: CERVICALGIA I10 ESSENTIAL (PRIMARY) HYPERTENSION E78.5 HYPERLIPIDEMIA, UNSPECIFI ED E66.9 OBESITY, UNSPECIFIED COMPARISON: None. NUMBER OF VIEWS: Five views. TECHNIQUE: AP, lateral, obliques and odontoid radiographic images acquired of the cervical spine. LIMITATIONS: None. FINDINGS: MINERALIZATION: Normal. ALIGNMENT: Anatomic. VERTEBRAE: Vertebral bodies of normal height. DISCS: Disc spaces are narrowed from C3-C7 with marginal osteophytes including bridging osteophytes a t multiple levels. FORAMINA: There is narrowing of the neural foramina at C5-6 bilaterally secondary to uncovertebral os teophytes. There is mild narrowing at C6-7 bilaterally as well. There is narrowing at C4-5 on the l eft secondary to hypertrophic facet changes. LATERAL AND POSTERIOR ELEMENTS: Mild hypertrophic facet changes, left more than right. HARDWARE: None in the spine. SOFT TISSUES: No masses or calcifications. Lung apices clear. OTHER: No other significant finding. IMPRESSION: Degenerative disc disease, spondylosis, and facet arthropathy. TECHNICAL DOCUMENTATION: JOB ID: [id number] 2010 [employer]- All Rights Reserved Reading location - IP/workstation name: [email or web address]
== END ==
LOC: OD 10:15
PROVIDERS: ATTEND Family Medicine Geriatric Medicine
DX: I10 Essential (primary) hypertension (principal); E78.5 Hyperlipidemia, unspecified; M54.2 Cervicalgia; Z79.899 Other long term (current) drug therapy
CPT/HCPCS: 36415; 72050; 80053; 80061; 84443; 85025